=== PATIENT | female | born 1960 | race Hispanic/Latino ===

== ENCOUNTER 2019-02-04 10:26 | Emergency (ER) | payer BC, OTHER | END 2019-02-04 11:40 | disposition home or self-care (01) | LOC: EDH 10:26 | DX: H10.9 Unspecified conjunctivitis (principal); I10 Essential (primary) hypertension ==

== ENCOUNTER 2019-03-26 12:19 | Emergency (ER) | payer BC ==
[2019-03-26 12:57] LABS: EOSINOPHILS % (AUTO) 2.8 % (0.0-8.0); HEMATOCRIT 35.5 % (36-48); LYMPHOCYTES % (AUTO) 32.7 % (21.0-51.0); MEAN CORPUSCULAR HEMOGLOBIN 29.5 pg (27.0-33.0); MEAN CORPUSCULAR VOLUME 86.6 fL (79-99); MONOCYTES % (AUTO) 5.3 % (3.0-13.0); NEUTROPHILS % (AUTO) 58.2 % (40.0-77.0); NUCLEATED RED BLOOD CELLS 0.1 % (0.0-0.19); PLATELET COUNT (AUTO) 137 K/uL (130-400); RED BLOOD CELL COUNT(AUTO) 4.09 MIL/uL (4.00-5.50); WHITE BLOOD COUNT (AUTO) 6.4 K/uL (4.8-10.8)
[2019-03-26] MEDS ORDERED: KETOROLAC TROMETHAMINE 30MG/ML ONE (13:04)
[2019-03-26] MEDS ORDERED: DIAZEPAM 5 MG TABLET ONE (13:04)
[2019-03-26] MEDS ORDERED: SODIUM CHLORIDE 0.9% 1000ML 1,000 ML IV ONE (13:05)
[2019-03-26 13:15] LABS: CREATININE 0.7 mg/dL (0.5-1.5); POTASSIUM 4.4 mmol/L (3.5-5.1)
== END 2019-03-26 16:17 | disposition home or self-care (01) ==
LOC: EDH 12:19
DX: M79.604 Pain in right leg (principal); G89.29 Other chronic pain; I10 Essential (primary) hypertension; Z98.890 Other specified postprocedural states
CPT/HCPCS: 36415; 80048; 85025; 93005; 93971; 96374; 99285; J1885; J7030